=== PATIENT | female | born 2000 | race Hispanic/Latino ===

== ENCOUNTER 2020-04-16 14:40 | Inpatient (IN) | payer OTHER ==
--- OUTSIDE RECORDS SUMMARY | 2020-04-16 14:43 | XMS REPORT | Continuity of Care Document ---
:2000 Author Organization [facility] t Address [address] [place] [address] Care Team Providers Name Role Phone Janay Pascal Attending Clinician Ultrasound Attending Clinician Unavailable Problems This patient has no known problems. Allergies, Adverse Reactions, Alerts This patient has no known allergies or adverse reactions. Medications This patient has no known medications. Procedures This patient has no known procedures. Encounters Start End Encounter Admission Attending Care Care Encounter Source Date/Time Date/Time Type Type Clinicians Facility Department ID 2019-10-15 2019-10-15 Abstract ALONDRA Steven [id number] 00:00:00 00:00:00 Daniela Gustafson [facility] [id number] REGIONAL [id number] MATERNAL [id number] & CHILD [address] [facility] 2019-10-14 2019-10-14 [employer] Ultrasound, [facility] [id number] 14:09:34 14:39:34 Visit Cathy [facility] [id number] REGIONAL [id number] MATERNAL [id number] & CHILD [address] [facility] 2019-10-08 2019-10-08 Telemedici ALONDRA Steven [id number] 09:44:58 10:53:08 ne Visit Daniela R [employer] [employer] [id number] REGIONAL [id number] MATERNAL [id number] & CHILD 107 [facility] 2019-09-09 2019-09-09 Initial Maurizio [facility] [id number] 13:11:00 14:10:52 Daniela Gustafson [employer] [id number] Visit [facility] [id number] MATERNAL [phone] & CHILD [address] [place] [address] [facility] [place] Results This patient has no known results.
[2020-04-16] MEDS ORDERED: Ringers Lactate 1,000 ML IV PRN (15:45)
[2020-04-16] MEDS ORDERED: CARBOPROST TROME 250 MCG/ML IM PRN (15:45)
[2020-04-16] MEDS ORDERED: PROMETHAZINE INJ 25 MG/ML AMP IM PRN (15:45)
[2020-04-16] MEDS ORDERED: METHYLERGONOVINE 0.2MG/ML AMP IM PRN ×2 (15:45→20:28)
[2020-04-16] MEDS ORDERED: BUTORPHANOL 1 MG/ML INJ IV PRN (15:45)
[2020-04-16] MEDS ORDERED: OXYTOCIN/LR 20 UNIT/1,000 ML BAG IV SCH (16:00)
[2020-04-16] MEDS ORDERED: Ringers Lactate 1,000 ML IV SCH (16:00)
[2020-04-16 16:10] LABS: Urine Appearance CLEAR; Urine Bilirubin NEGATIVE (NEG); Urine Blood 1+ (NEG); Urine Color YELLOW; Urine Glucose NEGATIVE (NEG); Urine Protein NEGATIVE (NEG); Urine Urobilinogen 0.2 mg/dL (0.2-1.0)
[2020-04-16 16:13] LABS: Absolute Lymphocytes (CBC) 1.9 K/uL (0.7-4.9); Basophils % 0.4 % (0-1.3); Hematocrit 34.4 % (36.0-45.0); Lymphocytes % 18.5 % (15.3-44.8); RBC Red Blood Cell Count 3.97 M/uL (3.86-4.86)
[2020-04-16 16:16] LABS: Urine Microscopic Reflex ORDER UMIC
[2020-04-16 16:21] VITALS: BMI 27.8
[2020-04-16 16:24] LABS: Urine Bacteria <20 /HPF (<20); Urine Mucus MOD /HPF (NONE SEEN); Urine RBC <5 /HPF (NONE SEEN)
[2020-04-16] MEDS ORDERED: FENTANYL CITR 100 MCG/2 ML IV ONE (16:29)
[2020-04-16] MEDS ORDERED: FENTANYL/BUPIVACAINE/NS/PF 200 MCG/100 ML BAG EP PRN (16:29)
[2020-04-16] MEDS ORDERED: BUPIVACAINE 0.25% PF 10 ML VIAL IV PRN (16:30)
[2020-04-16] MEDS ORDERED: BUPIVACAINE 0.25% PF 10 ML VIAL IJ PRN (17:00)
[2020-04-16] MEDS ORDERED: LIDOCAINE 1% MPF 30 ML VIAL ONE (18:03)
--- NOTE | 2020-04-16 20:13 | HP ---
Date of Admission: 04/16/2020 Chief Complaint: Increasing frequency of contractions q.5 minutes. History Of Present Illness: This is a 20-year-old 2, para 1 female, last menstrual period on 07/22/2019, EDC is 04/24/2020, who is now 38 weeks 6 days, who presents complaining of increasing frequency of contractions less than 5 minutes apart beginning earlier today. She reports good movement. She denies any rupture of membranes, fever, or cough. Course: The patient has been receiving care by Dr. Chawla, who has had multiple visits and no complications during her . She has had no evidence of hypertensive disease or gestational diabetes. The patient was scheduled for an induction of labor in [address] Chawla, but had the onset of contractions prior to that time. Past Medical History: Obstetrical History: 2017, spontaneous vaginal delivery of a male weighing 7 pounds 7 ounces, which was uncomplicated. Surgical History: Negative. Illnesses: None. Medications: vitamins. Allergies: NONE. Social History: Denies any smoking, ethanol, or drug use. Review of Systems: No other current symptoms. Family History: Unremarkable. Physical Examination: General: This is a gravid female, in mild distress from repetitive contractions. Vital Signs: Blood pressure was 127/66, temp 97.9, pulse 97 and regular, respiratory rate 16. Height 5 feet 2 inches, 155 pounds. Neck: Supple without adenopathy or thyromegaly. Chest: Clear to ausculation. Heart: Regular rate without murmur. Abdomen: Fundal height appropriate for 39 weeks , vertex presentation. Pelvic: Cervix 4 to 5, 80%, -1 station, vertex presentation, intact membranes. Extremities: Minimal edema. Normal reflexes. Laboratory Data: Admission lab is pending. Previous documented laboratory reveals rubella immune, HIV negative, hepatitis B surface antigen negative, GBS negative on 03/30, negative chlamydia and gonorrhea during her . Impression: A 38 weeks 6 days 2, para 1, intrauterine in active labor, intact membranes and negative group B streptococcus culture, unknown COVID status. Plan: The patient is admitted for latent labor, the lab work, COVID testing. The patient desires epidural and after she receives this, we will perform amniotomy, expect spontaneous vaginal delivery. PAULINE/MINERVA Voice ID: [id number] MTDD
[2020-04-16] MEDS ORDERED: ACETAMINOPHEN 500 MG TAB PO PRN (20:28)
[2020-04-16] MEDS ORDERED: ONDANSETRON 4 MG (ODT) TAB PO PRN (20:28)
[2020-04-16] MEDS ORDERED: ZOLPIDEM TARTRATE 5 MG TABLET PO PRN (20:28)
[2020-04-16] MEDS ORDERED: Oxycodone HCl/Acetaminophen 1 TAB TAB PO PRN (20:28)
--- NOTE | 2020-04-16 21:13 | DN ---
Date of Procedure: 04/16/2020 Surgeon: LA DELGADO This 20-year-old 2, para 1, 38 weeks 6 days, presented to the hospital in early labor. She had an epidural placed and then underwent artificial rupture of membranes at 1935 hours, with clear fluid. The patient had approximately 3 to 4 pushes in second stage, delivered spontaneously at 1956hrs a viable male, Apgars 9/10, weight :7 pounds 10 ounces, 3467 g, 20 inches in length. There was a 1-minute delay in cutting the umbilical cord for autotransfusion. There was no episiotomy or lacerations. The estimated blood loss was less than 100 cc. Placenta delivered spontaneously at 1958 hours, 2 minutes after delivery. Placenta was intact, three vessel cord, and no anomalies noted. There was a vigorous cry from the baby and both mother and baby did well in room with no complications. PAULINE/MINERVA Voice ID: [id number] Report ID: [id number] ANNETTE
[2020-04-16] MEDS: IBUPROFEN 200 MG TAB PO PRN (23:30)
[2020-04-17 06:42] LABS: Absolute Lymphocytes (CBC) 2.6 K/uL (0.7-4.9); Basophils % 0.5 % (0-1.3); Hematocrit 30.4 % (36.0-45.0); Lymphocytes % 19.2 % (15.3-44.8); MPV 10.7 fL (7.6-11.3); RBC Red Blood Cell Count 3.49 M/uL (3.86-4.86)
[2020-04-17] MEDS: IBUPROFEN 200 MG TAB PO PRN ×2 (08:45→20:00)
--- NOTE | 2020-04-17 14:57 | PN ---
Date of Progress Note: 04/17/2020 Subjective: This 20-year-old 2, now para 2, white female status post spontaneous vaginal del gila yesterday evening at 1956 hours, who is now . The patient had an uneventful labor an d delivery with epidural. She had a very short second stage of labor and no bleeding complications. She remained normotensive throughout her hospital stay. Today, the patient reports just mild crampi ng which is relieved by ibuprofen. She is . The patient desires to have the Tdap vacci ne and influenza vaccine. She was rubella immune, so does not need MMR. Objective: Current Vital Signs: Blood pressure 120/70, pulse 80 and regular, respiratory rate 16. Genitalia: Her uterus is firm and lochia is minimal. Impression: Normal exam of a term intrauterine . Her hematocrit is 3 0.4 and she is Rh positive. Plan: The patient is scheduled for discharge in 24 hours this evening. Recommendations i nclude pelvic rest for 6 weeks, no tampons or intercourse. Continue vitamins with some iron supplementation. Followup with Dr. Chawla in 6 weeks and she desires Nexplanon for control at that time. PAULINE/MINERVA Voice ID: [id number] Report ID: [id number]
[2020-04-17] MEDS ORDERED: Tdap (Diph,Pertuss(Acell),Tet Vac) 0.5 ML SYR IMVAC ONE (17:52)
[2020-04-17] MEDS ORDERED: INFLUENZA VACCINE (for 3y+) 0.5 ML DOSE IMVAC ONE (17:52)
[2020-04-17 22:01] VITALS: BP 116/73; TEMP 98
[2020-04-18 01:02] LABS: RPR (Rapid Plasma Reagin) NON-REACT (NON-REACT)
[2020-04-20 04:17] LABS: HBsAG Nonreactive (Nonreactive)
== END 2020-04-17 22:22 | disposition home or self-care (01) | DRG 807 ==
LOC: L&D 14:40 → 2ND-WC 15:33
PROVIDERS: ADMIT Specialist; ATTEND Specialist
PROC: 10E0XZZ Delivery of Products of Conception, External Approach (ICD-10-PCS; principal; 2020-04-16)
PROC: 10907ZC Drainage of Amniotic Fluid, Therapeutic from Products of Conception, Via Natural or Artificial Opening (ICD-10-PCS; 2020-04-16)
DX: O80 Encounter for full-term uncomplicated delivery (principal); Z37.0 Single live birth; Z3A.38 38 weeks gestation of pregnancy; Z20.828 Contact with and (suspected) exposure to other viral communicable diseases; Z23 Encounter for immunization
CPT/HCPCS: 36415; 81003; 81015; 85025; 86592; 86901; 87340; 90471; 90715; J2210; J2590; J3010; J7120; Q2035; U0003

== ENCOUNTER 2022-10-02 09:28 | Emergency (ER) | payer OTHER ==
--- OUTSIDE RECORDS SUMMARY | 2022-10-02 09:36 | XMS REPORT | Continuity of Care Document ---
:2000 Author Organization [facility] t Address [address] [facility] [place] [address] Care Team Providers Name Role Phone Mya Dimas Primary Care Physician KARAN MARQUEZ Attending Clinician Unavailable Karan Marquez MD Attending Clinician Doctor Unassigned, [place] Attending Clinician Unavailable Jd Dodd CRNA Attending Clinician All Burr MD Attending Clinician Only, Adc Test Attending Clinician Unavailable Lab, Ang - Db Attending Clinician Unavailable Ultrasound, Adc Mfm Attending Clinician Unavailable Tami Nichols MD Attending Clinician Pob, Adc Lab Main Attending Clinician Unavailable DANIELA RAYO Attending Clinician Unavailable Daniela Pascal Attending Clinician Ultrasound, Ang-Mfm Attending Clinician Unavailable Colton Roberts MD Attending Clinician KARAN MARQUEZ Admitting Clinician Unavailable Karan Marquez MD Admitting Clinician Payers Payer Name Policy Type Policy Number Effective Date Expiration Date [facility] [id number] 2019 [facility] MEDICAID 00:00:00 [facility] [id number] 2019 MEDICAID 00:00:00 MEDICAID OF [place] [id number] 2019 00:00:00 Problems Condition Condition Condition Status Onset Resolution Last Treating Co mments Source Name Details Category Date Date Treatment Clinician Date Encounter Encounter Disease Active 2020-05 Uni vers for for 1-24 ity of elective elective 00:00: [place] induction induction [facility] of labor of labor [place] Liveborn Liveborn Disease Active 2020-05 Unive rs infant, of infant, of 1-24 it y [facility] by vaginal by vaginal delivery delivery Missed Missed Disease Active Univers menses menses 4-13 ity of 00:00: [place] 00 [facility] Disease Active Uni vers examinatio examinatio 4-13 it y of n or test, [place] test, [place] positive positive 00 Medica l result result [place] Supervisio Supervisio Disease Active U nivers n of other n of other 4-13 it y of normal normal 00:00: [place] 00 [facility] Supervisio Supervisio Disease Active 2019- U nivers n of high n of high 5-21 ity of risk risk 00:00: [place] , , 00 Me dical antepartum antepartum Br anch Short Short Disease Active 2020-0 Univers interval interval 5-21 ity of between between 00:00: [place] pregnancie pregnancie 00 Me dical s s Branch affecting affecting , , antepartum antepartum Multiparit Multiparit Disease Active 2020-0 U nivers y y 5-21 ity of 00:00: [address] Nausea Nausea Disease Active 2020-0 Univers 5-21 ity of 00:00: [address] Branch Susceptibl Susceptibl Disease Active 2020-0 Overview : Univers e to e to 09-09 Formattin ity of varicella varicella 00:00: g of this [place] (non-immun (non-immun 00 note Me dical e), e), might be Branch currently currently different from the original. Address in Postpartu m No known No known Disease Unive rs active active ity of problems problems [facility] Allergies, Adverse Reactions, Alerts Allergy Allergy Status Severity Reaction(s) Onset Inactive Treating Comm ents Source Name Type Date Date Clinician NO KNOWN Drug Active Univers ALLERGIE Class ity of S [facility] Social History Social Habit Start Date Stop Date Quantity Comments Source ASSERTION 2020-07-27 [facility] 00:00:00 [facility] Exposure to Not sure University SARS-CoV-2 [facility] (event) [place] Alcohol intake 2021-03-23 2021-03-23 Ex-drinker [facility] 00:00:00 00:00:00 (finding) [facility] Tobacco use and 2019-09-09 2019-09-09 Never used Universit y of exposure 00:00:00 00:00:00 [facility] Sex Assigned At 2000 2000 Universit y of 00:00:00 00:00:00 [facility] Smoking Status Start Date Stop Date Source Unknown if ever smoked [facility] Medications Ordered Filled Start Stop Current Ordering Indication Dosage Frequency Signature Comments Components Source Medication Medication Date Date Medication? Clinician (SIG) Name Name etonogestre 2020-05- No [id number] 68mg Univers L 2-16 12-16 ity of (NEXPLANON) 18:45: 23:56 [place] implant 68 00 :00 Medical [facility] etonogestre 2020-05- No [id number] 68mg 68 mg, Univers L 2-16 12-16 Subdermal, ity of (NEXPLANON) 18:45: 23:56 [place]CE, 1 [place] implant 68 00 :00 dose, On Medic al mg Deb [place] 05/04/21 at 1245, Routine
Use approved by: [employer] varicella 2020-05 Yes .5mL 0.5 mL, Unive rs virus - Subcutaneo ity of vaccine 02:09: us, [place] live 30 ONCE-PRIOR Medical (VARIVAX TO [place] (PF)) DISCHARGE, injection 1 dose, 0.5 mL Starting on Sat04/12/21 at 2008, Until Discontinu ed, Routine, Give vaccine prior to discharge rho(D) 2020-05 Yes 300ug 300 mcg, Univer s immune 1-24 Intramuscu ity of globulin 16:05: lar, ONCE, [place] as (RHOGAM) 32 For 1 Medical syringe 300 dose, Branch mcg Conditiona l, Routine HYDROcodone 2020-05 Yes 1{tbl} 1 tablet, Univers -acetaminop 1-24 Oral, ity of hen (NORCO 16:04: Q6HPRN, [place] 5) 5-325 mg 00 Starting Medi mukesh tablet 1 on Sat Branch tablet 04/12/21 at 1004, Until Discontinu ed, Routine, Pain (scale 7-10) ibuprofen 2020-05 Yes 600mg 600 mg, Univ ers (IBU) 1-24 Oral, ity of tablet 600 16:04: Q6HPRN, [place] mg 00 Starting Medical on Sat Branch 04/12/21 at 1004, Until Discontinu ed, Routine, Pain (scale 4-6) acetaminoph 2020-05 Yes 650mg 650 mg, Un rashel en 24 Oral, ity of (TYLENOL) 16:04: Q6HPRN, [place] tablet 650 00 Starting Medic al mg on Sat Branch 04/12/21 at 1004, Until Discontinu ed, Routine, Pain (scale 1-3) diphenhydrA 2020-05 Yes 25mg 25 mg, Univ ers MINE 24 Oral, ity of (BENADRYL) 16:04: Q6HPRN, [place] tablet 25 00 Starting Medica l mg on Sat Branch 04/12/21 at 1004, Until Discontinu ed, Routine, Sleep, Itching ondansetron 2020-05 Yes 4mg 4 mg, Slow Univers (ZOFRAN 24 IV Push, ity of (PF)) 16:04: Q8HPRN, [place] injection 4 00 Starting Medi mukesh mg on Sat Branch 04/12/21 at 1004, Until Discontinu ed, Routine, Nausea and Vomiting (N/V) simethicone 2020-05 Yes 160mg 160 mg, Un rashel (GAS RELIEF 24 Oral, ity of (SIMETHICON 16:04: PC+HSPRN, [place] E)) 00 Starting Medical chewable on Sat Branch tablet 160 04/12/21 mg at 1004, Until Discontinu ed, Routine, Gas docusate 2020-05 Yes 240mg 240 mg, Unive rs calcium -24 Oral, ity of (SURFAK) 16:04: QDAILYPRN, [place] capsule 240 00 Starting Medi mukesh mg on Sat Branch 04/12/21 at 1004, Until Discontinu ed, Routine, Constipati on magnesium 2020-05 Yes 30mL 30 mL, Univer s hydroxide 06-12 Oral, ity of (MILK OF 16:04: QDAILYPRN, [place] MAGNESIA) 00 Starting Medica l 400 mg/5 mL on Sat Branch suspension 04/12/21 30 mL at 1004, Until Discontinu ed, Routine, Constipati on benzocaine- 2020-05 Yes Topical, Un rashel menthol - PRN, ity of (DERMOPLAST 16:03: [place] ) 20-0.5 % 59 on Sat Medical topical 04/12/21 Branch spray at 1003, Until Discontinu ed, Routine, Perineum discomfort FENTanyl 2 2020-05- No Intra-op Un rashel mcg/mL + 06-12 ity of bupivacaine 14:11: 17:13 [place] 0.125% in 00 :50 Medical NS 250 mL Branch epidural bag lidocaine-e 2020-05- No Epidural, Univers pinephrine 06-12 ONCE INTRA it y of (XYLOCAINE 14:10: 17:13 PROCEDURE, [place] W/EPINEPHRI 00 :50 Starting Medi mukesh NE) 1.5 on Sat Branch %-1:200,000 04/12/21 injection at 0810, Until Sat04/12/21 at 1113, Routine, Intra-op lidocaine 2020-05- No Infiltrati U nivers 1% 06-12 on, ONCE ity of (XYLOCAINE) 14:04: 17:13 INTRA [place] 100 mg/10 00 :50 PROCEDURE, Medi mukesh mL (1 %) Starting Branch injection on Sat04/12/21 at 0804, Until Sat04/12/21 at 1113, Routine, Intra-op D5W-LR IV 2020-05- No 1000mL at 125 Uni vers infusion 06-12 11-24 mL/hr, IV ity o f 1,000 mL 11:00: 16:05 Infusion, [place] as 00 :33 CONTINUOUS Medical , Starting Branch on Sat04/12/21 at 0500, Until Sat04/12/21 at 1005, Routine LR 1000 mL 2020-05- No 2mU/min at 6-120 Univers + oxytocin 24 11-24 mL/hr, IV ity of 20 units IV 10:48: 16:05 Infusion, [place] Solution 08 :33 TITRATE, Medical Starting Branch on Sat04/12/21 at 0448, Until Sat04/12/21 at 1005, CAROL ondansetron 2020-05- No 4mg 4 mg, Slow Univers (ZOFRAN -24 -24 IV Push, ity of (PF)) 10:48: 16:05 Q6HPRN, [place] injection 4 08 :33 Starting Medi mukesh mg on Sat Branch 04/12/21 at 0448, Until Sat04/12/21 at 1005, Routine, Nausea and Vomiting (N/V) 2020-05 Yes [id number] 1{tbl} Take 1 U nivers vit w/iron 1-24 tablet by ity of fumarate 00:00: mouth [place] and FA 00 daily. Medical ( Branch VITAMIN WITH MINERALS) tablet docusate 2020-05 Yes [id number] 240mg Take 1 Univers calcium 240 1-24 102 capsule by it y of mg capsule 00:00: mouth once [place] 00 daily as Medical needed for Branch Constipati on. ibuprofen 2020-05 Yes [id number] 600mg Take 1 Univers 600 mg 1-24 102 tablet by ity of tablet 00:00: mouth [place] 00 every 6 Medical (six) Branch hours as needed (Pain). Take with food or milk. 2020-05 Yes [id number] 1{tbl} Take 1 U nivers vit w/iron 1-24 tablet by ity of fumarate 00:00: mouth [place] and FA 00 daily. Medical ( Branch VITAMIN WITH MINERALS) tablet docusate 2020-05 Yes [id number] 240mg Take 1 Univers calcium 240 1-24 102 capsule by it y of mg capsule 00:00: mouth [place] 00 daily as Medical needed for Branch Constipati on. ibuprofen 2020-05 Yes [id number] 600mg Take 1 Univers 600 mg 1-24 102 tablet by ity of tablet 00:00: mouth [place] 00 every 6 Medical (six) Branch hours as needed (Pain). Take with food or milk. 2020-05 Yes [id number] 1{tbl} Take 1 U nivers vit w/iron 1-24 tablet by ity of fumarate 00:00: mouth [place] and [place] 00 daily. Medical ( Branch VITAMIN WITH MINERALS) tablet 2020-05 Yes [id number] 1{tbl} Take 1 U nivers vit w/iron -24 tablet by ity of fumarate 00:00: mouth [place] and [place] 00 daily. Medical ( Branch VITAMIN WITH MINERALS) tablet docusate 2020-05- No [id number] 240mg Take 1 Univers calcium 240 06-12 102 capsule by i ty of mg capsule 00:00: 00:00 mouth once [place] 00 :00 daily as Medical needed for Branch Constipati on. ibuprofen 2020-05- No [id number] 600mg Take 1 Univers 600 mg 06-1216 102 tablet by ity of tablet 00:00: 00:00 mouth [place] 00 :00 every 6 Medical (six) Branch hours as needed (Pain). Take with food or milk. ferrous 2020-05 Yes [id number] 325mg Take 1 Un rashel sulfate 1-05 tablet by ity of (IRON, 00:00: mouth [place] FERROUS 00 every Medical SULFATE,) other day. Bran ch 325 mg (65 mg iron) tablet ascorbic 2020-05 Yes [id number] 500mg Take 1 U nivers acid, 1-05 tablet by ity of vitamin C, 00:00: mouth [place] 500 mg 00 every Medical tablet other day. Branch ferrous 2020-05 Yes [id number] 325mg Take 1 Un rashel sulfate 1-05 tablet by ity of (IRON, 00:00: mouth [place] FERROUS 00 every Medical SULFATE,) other day. Bran ch 325 mg (65 mg iron) tablet ascorbic 2020-05 Yes [id number] 500mg Take 1 U nivers acid, 1-05 tablet by ity of vitamin C, 00:00: mouth [place] 500 mg 00 every Medical tablet other day. Branch ferrous 2020-05 Yes [id number] 325mg Take 1 Un rashel sulfate 1-05 tablet by ity of (IRON, 00:00: mouth [place] FERROUS 00 every Medical SULFATE,) other day. Bran ch 325 mg (65 mg iron) tablet ascorbic 2020-05 Yes [id number] 500mg Take 1 U nivers acid, 1-05 tablet by ity of vitamin C, 00:00: mouth [place] 500 mg 00 every Medical tablet other day. Branch ferrous 2020-05 Yes [id number] 325mg Take 1 Un rashel sulfate 1-05 tablet by ity of (IRON, 00:00: mouth [place] FERROUS 00 every Medical SULFATE,) other day. Bran ch 325 mg (65 mg iron) tablet ascorbic 2020-05 Yes [id number] 500mg Take 1 U nivers acid, 1-05 tablet by ity of vitamin C, 00:00: mouth [place] 500 mg 00 every Medical tablet other day. Branch ferrous 2020-05 Yes [id number] 325mg Take 1 Un rashel sulfate 1-05 tablet by ity of (IRON, 00:00: mouth [place] FERROUS 00 every Medical SULFATE,) other day. Bran ch 325 mg (65 mg iron) tablet ascorbic 2020-05 Yes [id number] 500mg Take 1 U nivers acid, 1-05 tablet by ity of vitamin C, 00:00: mouth [place] 500 mg 00 every Medical tablet other day. Branch ferrous 2020-05 Yes [id number] 325mg Take 1 Un rashel sulfate 1-05 tablet by ity of (IRON, 00:00: mouth [place] FERROUS 00 every Medical SULFATE,) other day. Bran ch 325 mg (65 mg iron) tablet ascorbic 2020-05 Yes [id number] 500mg Take 1 U nivers acid, 1-05 tablet by ity of vitamin C, 00:00: mouth [place] 500 mg 00 every Medical tablet other day. Branch ferrous 2020-05 Yes [id number] 325mg Take 1 Un rashel sulfate 1-05 tablet by ity of (IRON, 00:00: mouth [place] FERROUS 00 every Medical SULFATE,) other day. Bran ch 325 mg (65 mg iron) tablet ascorbic 2020-05 Yes [id number] 500mg Take 1 U nivers acid, 1-05 tablet by ity of vitamin C, 00:00: mouth [place] 500 mg 00 every Medical tablet other day. Branch ferrous 2020-05- No [id number] 325mg Take 1 U nivers sulfate 1-05 12-16 tablet by ity of (IRON, 00:00: 00:00 mouth [place] FERROUS 00 :00 every Medical SULFATE,) other day. Bran ch 325 mg (65 mg iron) tablet ascorbic 2020-05 No [id number] 500mg Take 1 Univers acid, 1-05 12-16 tablet by ity of vitamin C, 00:00: 00:00 mouth [place] 500 mg 00 :00 every Medical tablet other day. Branch ferrous 2020-05- No [id number] 325mg Take 1 U nivers sulfate 05-2416 tablet by ity of (IRON, 00:00: 00:00 mouth [place] FERROUS 00 :00 every Medical SULFATE,) other day. Bran ch 325 mg (65 mg iron) tablet ascorbic 2020-05- No [id number] 500mg Take 1 Univers acid, 05-2416 tablet by ity of vitamin C, 00:00: 00:00 mouth [place] 500 mg 00 :00 every Medical tablet other day. Branch cephALEXin 2020-05- No [id number] 500mg Take 1 Univers 500 mg 05-22 capsule by ity of capsule 00:00: 05:59 mouth [place] 00 :00 every 6 Medical (six) Branch hours for 7 days. cephALEXin 2020-05- No [id number] 500mg Take 1 Univers 500 mg 05-22 capsule by ity of capsule 00:00: 05:59 mouth [place] 00 :00 every 6 Medical (six) Branch hours for 7 days. cephALEXin 2020-05- No [id number] 500mg Take 1 Univers 500 mg 05-22 capsule by ity of capsule 00:00: 05:59 mouth [place] 00 :00 every 6 Medical (six) Branch hours for 7 days. cephALEXin 2020-05- No [id number] 500mg Take 1 Univers 500 mg 05-22 capsule by ity of capsule 00:00: 05:59 mouth [place] 00 :00 every 6 Medical (six) Branch hours for 7 days. cephALEXin 2020-05- No [id number] 500mg Take 1 Univers 500 mg 05-2211 capsule by ity of capsule 00:00: 05:59 mouth [place] 00 :00 every 6 Medical (six) Branch hours for 7 days. Yes [id number] 1{tbl} Take 1 U nivers vit w/iron 6-08 tablet by ity of fumarate 00:00: mouth [place] and FA 00 daily. Medical ( Branch VITAMIN WITH MINERALS) tablet Yes [id number] 1{tbl} Take 1 U nivers vit w/iron 6-08 tablet by ity of fumarate 00:00: mouth [place] and [place] 00 daily. Medical ( Branch VITAMIN WITH MINERALS) tablet Yes [id number] 1{tbl} Take 1 U nivers vit w/iron 6-08 tablet by ity of fumarate 00:00: mouth [place] and FA 00 daily. Medical ( Branch VITAMIN WITH MINERALS) tablet Yes [id number] 1{tbl} Take 1 U nivers vit w/iron 6-08 tablet by ity of fumarate 00:00: mouth [place] and FA 00 daily. Medical ( Branch VITAMIN WITH MINERALS) tablet Yes [id number] 1{tbl} Take 1 U nivers vit w/iron 6-08 tablet by ity of fumarate 00:00: mouth [place] and FA 00 daily. Medical ( Branch VITAMIN WITH MINERALS) tablet Yes [id number] 1{tbl} Take 1 U nivers vit w/iron 6-08 tablet by ity of fumarate 00:00: mouth [place] and FA 00 daily. Medical ( Branch VITAMIN WITH MINERALS) tablet Yes [id number] 1{tbl} Take 1 U nivers vit w/iron 6-08 tablet by ity of fumarate 00:00: mouth [place] and FA 00 daily. Medical ( Branch VITAMIN WITH MINERALS) tablet Yes [id number] 1{tbl} Take 1 U nivers vit w/iron 6-08 tablet by ity of fumarate 00:00: mouth [place] and FA 00 daily. Medical ( Branch VITAMIN WITH MINERALS) tablet Yes [id number] 1{tbl} Take 1 U nivers vit w/iron 6-08 tablet by ity of fumarate 00:00: mouth [place] and FA 00 daily. Medical ( Branch VITAMIN WITH MINERALS) tablet Yes [id number] 1{tbl} Take 1 U nivers vit w/iron 6-08 tablet by ity of fumarate 00:00: mouth [place] and FA 00 daily. Medical ( Branch VITAMIN WITH MINERALS) tablet Yes [id number] 1{tbl} Take 1 U nivers vit w/iron 6-08 tablet by ity of fumarate 00:00: mouth [place] and FA 00 daily. Medical ( Branch VITAMIN WITH MINERALS) tablet Yes [id number] 1{tbl} Take 1 U nivers vit w/iron 6-08 tablet by ity of fumarate 00:00: mouth [place] and FA 00 daily. Medical ( Branch VITAMIN WITH MINERALS) tablet Yes [id number] 1{tbl} Take 1 U nivers vit w/iron 6-08 tablet by ity of fumarate 00:00: mouth [place] and FA 00 daily. Medical ( Branch VITAMIN WITH MINERALS) tablet Yes [id number] 1{tbl} Take 1 U nivers vit w/iron 6-08 tablet by ity of fumarate 00:00: mouth [place] and FA 00 daily. Medical ( Branch VITAMIN WITH MINERALS) tablet Yes [id number] 1{tbl} Take 1 U nivers vit w/iron 6-08 tablet by ity of fumarate 00:00: mouth [place] and FA 00 daily. Medical ( Branch VITAMIN WITH MINERALS) tablet Yes [id number] 1{tbl} Take 1 U nivers vit w/iron 6-08 tablet by ity of fumarate 00:00: mouth [place] and FA 00 daily. Medical ( Branch VITAMIN WITH MINERALS) tablet 2020- No [id number] 1{tbl} Take 1 Univers vit w/iron 6-08 11-24 tablet by ity of fumarate 00:00: 00:00 mouth [place] and FA 00 :00 daily. Medical ( Branch VITAMIN WITH MINERALS) tablet 2020- No [id number] 1{tbl} Take 1 Univers vit w/iron 6-08 11-24 tablet by ity of fumarate 00:00: 00:00 mouth [place] and FA 00 :00 daily. Medical ( Branch VITAMIN WITH MINERALS) tablet 2020- No [id number] 1{tbl} Take 1 Univers vit w/iron 6-08 11-24 tablet by ity of fumarate 00:00: 00:00 mouth [place] and FA 00 :00 daily. Medical ( Branch VITAMIN WITH MINERALS) tablet Yes [id number] 1{packe Take 1 Univers vit 4-22 t} Packet by ity of 33-iron-fol 00:00: mouth [place] ic-dha 00 daily. Medical (SELECT-OB Branch + DHA) 29 mg iron-1 mg -250 mg combo pack proMETHazin Yes [id number] 25mg Take 1 Univers e 25 mg 4-22 tablet by ity of tablet 00:00: mouth [place] 00 every 4 Medical (four) Branch hours as needed for Nausea and Vomiting (N/V). 2019-0 Yes [id number] 1{packe Take 1 Univers vit 4-22 t} Packet by ity of 33-iron-fol 00:00: mouth [place] ic-dha 00 daily. Medical (SELECT-OB Branch + DHA) 29 mg iron-1 mg -250 mg combo pack proMETHazin 2020-0 Yes [id number] 25mg Take 1 Univers e 25 mg 4-22 tablet by ity of tablet 00:00: mouth [place] 00 every 4 Medical (four) Branch hours as needed for Nausea and Vomiting (N/V). 2019-0 Yes [id number] 1{packe Take 1 Univers vit 4-22 t} Packet by ity of 33-iron-fol 00:00: mouth [place] ic-dha 00 daily. Medical (SELECT-OB Branch + DHA) 29 mg iron-1 mg -250 mg combo pack proMETHazin 2020-0 Yes [id number] 25mg Take 1 Univers e 25 mg 4-22 tablet by ity of tablet 00:00: mouth [place] 00 every 4 Medical (four) Branch hours as needed for Nausea and Vomiting (N/V). 2019-0 Yes [id number] 1{packe Take 1 Univers vit 4-22 t} Packet by ity of 33-iron-fol 00:00: mouth [place] ic-dha 00 daily. Medical (SELECT-OB Branch + DHA) 29 mg iron-1 mg -250 mg combo pack proMETHazin 2020-0 Yes [id number] 25mg Take 1 Univers e 25 mg 4-22 tablet by ity of tablet 00:00: mouth [place] 00 every 4 Medical (four) Branch hours as needed for Nausea and Vomiting (N/V). 2019-0 Yes [id number] 1{packe Take 1 Univers vit 4-22 t} Packet by ity of 33-iron-fol 00:00: mouth [place] ic-dha 00 daily. Medical (SELECT-OB Branch + DHA) 29 mg iron-1 mg -250 mg combo pack proMETHazin 2020-0 Yes [id number] 25mg Take 1 Univers e 25 mg 4-22 tablet by ity of tablet 00:00: mouth [place] 00 every 4 Medical (four) Branch hours as needed for Nausea and Vomiting (N/V). 2020-0 Yes [id number] 1{packe Take 1 Univers vit 4-22 t} Packet by ity of 33-iron-fol 00:00: mouth [place] ic-dha 00 daily. Medical (SELECT-OB Branch + DHA) 29 mg iron-1 mg -250 mg combo pack proMETHazin 0 Yes [id number] 25mg Take 1 Univers e 25 mg 4-22 tablet by ity of tablet 00:00: mouth [place] 00 every 4 Medical (four) Branch hours as needed for Nausea and Vomiting (N/V). 2020-0 Yes [id number] 1{packe Take 1 Univers vit 4-22 t} Packet by ity of 33-iron-fol 00:00: mouth [place] ic-dha 00 daily. Medical (SELECT-OB Branch + DHA) 29 mg iron-1 mg -250 mg combo pack proMETHazin 0 Yes [id number] 25mg Take 1 Univers e 25 mg 4-22 tablet by ity of tablet 00:00: mouth [place] 00 every 4 Medical (four) Branch hours as needed for Nausea and Vomiting (N/V). amoxicillin 2017-05 Yes 500mg Take 1 Uni vers 500 mg 2-06 capsule by ity of capsule 00:00: mouth 3 [place] 00 (three) Medical times Branch daily. ibuprofen 2017-05 Yes 800mg Take 1 Unive rs 800 mg 2-06 tablet by ity of tablet 00:00: mouth [place] 00 every 8 Medical (eight) Branch hours. amoxicillin 2017- Yes 500mg Take 1 Uni vers 500 mg 2-06 capsule by ity of capsule 00:00: mouth 3 [place] 00 (three) Medical times Branch daily. ibuprofen 2017- Yes 800mg Take 1 Unive rs 800 mg 2-06 tablet by ity of tablet 00:00: mouth [place] 00 every 8 Medical (eight) Branch hours. amoxicillin 2018- Yes 500mg Take 1 Uni vers 500 mg 2-06 capsule by ity of capsule 00:00: mouth 3 [place] 00 (three) Medical times Branch daily. ibuprofen 2017- Yes 800mg Take 1 Unive rs 800 mg 2-06 tablet by ity of tablet 00:00: mouth [place] 00 every 8 Medical (eight) Branch hours. amoxicillin 2017-05 2020- No 500mg Take 1 Un rashel 500 mg 2-22 capsule by ity of capsule 00:00: 00:00 mouth 3 [place] 00 :00 (three) Medical times Branch daily. ibuprofen 2017- 2020- No 800mg Take 1 Univ ers 800 mg 2-10 21-22 tablet by ity of tablet 00:00: 00:00 mouth [place] 00 :00 every 8 Medical (eight) Branch hours. amoxicillin 2017- 2020- No 500mg Take 1 Un rashel 500 mg 2-10 21-22 capsule by ity of capsule 00:00: 00:00 mouth 3 [place] 00 :00 (three) Medical times Branch daily. ibuprofen 2017- 2020- No 800mg Take 1 Univ ers 800 mg 2-10 21-22 tablet by ity of tablet 00:00: 00:00 mouth [place] 00 :00 every 8 Medical (eight) Branch hours. amoxicillin 2017- 2020- No 500mg Take 1 Un rashel 500 mg 2-10 21-22 capsule by ity of capsule 00:00: 00:00 mouth 3 [place] 00 :00 (three) Medical times Branch daily. ibuprofen 2017-05 2020- No 800mg Take 1 Univ ers 800 mg 2-10 21-22 tablet by ity of tablet 00:00: 00:00 mouth [place] 00 :00 every 8 Medical (eight) Branch hours. amoxicillin 2017-05- No 500mg Take 1 Un rashel 500 mg 2-22 capsule by ity of capsule 00:00: 00:00 mouth 3 [place] 00 :00 (three) Medical times Branch daily. ibuprofen 2017-05- No 800mg Take 1 Univ ers 800 mg 2-22 tablet by ity of tablet 00:00: 00:00 mouth [place] 00 :00 every 8 Medical (eight) Branch hours. mupirocin 2017-0 Yes Apply to [facility] ers (BACTROBAN) 12-18 affected ity of 2 % cream 00:00: area(s) 3 [place] 00 (three) Medical times Branch daily. clindamycin 2017-0 Yes 300mg Take 1 Uni vers 300 mg 12-18 capsule by ity of capsule 00:00: mouth 4 [place] 00 (four) Medical times Branch daily. mupirocin 2017-0 Yes Apply to [facility] ers (BACTROBAN) 12-18 affected ity of 2 % cream 00:00: area(s) 3 [place] 00 (three) Medical times Branch daily. clindamycin 2017-0 Yes 300mg Take 1 Uni vers 300 mg - capsule by ity of capsule 00:00: mouth 4 [place] 00 (four) Medical times Branch daily. mupirocin 2017-0 Yes Apply to Univ ers (BACTROBAN) 12-18 affected ity of 2 % cream 00:00: area(s) 3 [place] 00 (three) Medical times Branch daily. clindamycin 2017-0 Yes 300mg Take 1 Uni vers 300 mg 8 capsule by ity of capsule 00:00: mouth 4 [place] 00 (four) Medical times Branch daily. mupirocin 2017-0 2020- No Apply to Uni vers (BACTROBAN) 12-18 affected ity of 2 % cream 00:00: 00:00 area(s) 3 [place] :00 (three) Medical times Branch daily. clindamycin 2017-0 2020- No 300mg Take 1 Un rashel 300 mg 12-18 capsule by ity of capsule 00:00: 00:00 mouth 4 [place] 00 :00 (four) Medical times Branch daily. mupirocin 2017-0 2020- No Apply to Uni vers (BACTROBAN) 12-18 affected ity of 2 % cream 00:00: 00:00 area(s) 3 [place] 00 :00 (three) Medical times Branch daily. clindamycin 2017-0 2020- No 300mg Take 1 Un rashel 300 mg 12-18 capsule by ity of capsule 00:00: 00:00 mouth 4 [place] 00 :00 (four) Medical times Branch daily. mupirocin 2017-0 2020- No Apply to Uni vers (BACTROBAN) 12-18 affected ity of 2 % cream 00:00: 00:00 [place]three[place] Medical times Branch daily. clindamycin 2017-0 2020- No 300mg Take 1 Un rashel 300 mg 12-18 capsule by ity of capsule 00:00: 00:00 mouth 4 [place] 00 :00 (four) Medical times Branch daily. mupirocin 2017-0 2020- No Apply to Uni vers (BACTROBAN) 12-18 affected ity of 2 % cream 00:00: 00:00 [place] (three[place] Medical times Branch daily. clindamycin 2020- No 300mg Take 1 Un rashel 300 mg 12-18 capsule by ity of capsule 00:00: 00:00 mouth 4 [place] 00 :00 (four) Medical times [place] daily. No known No Univers medications ity of [facility] Immunizations Ordered Filled Immunization Date Status Comments [facility] e Immunization Name Name HPV9 2021-05-04 Completed University of 00:00:00 [facility] HPV9 2021-05-04 Completed University of 00:00:00 [facility] TDAP 2021-01-20 Completed University of 00:00:00 [facility] TDAP 2021-01-20 Completed University of 00:00:00 [facility] TDAP 2021-01-20 Completed University of 00:00:00 [facility] TDAP 2021-01-20 Completed University of 00:00:00 [facility] TDAP 2021-01-20 Completed University of 00:00:00 [facility] TDAP 2021-01-20 Completed University of 00:00:00 [facility] TDAP 2021-01-20 Completed University of 00:00:00 [facility] TDAP 2021-01-20 Completed University of 00:00:00 [facility] TDAP 2021-01-20 Completed University of 00:00:00 [facility] TDAP 2021-01-20 Completed University of 00:00:00 [facility] TDAP 2021-01-20 Completed University of 00:00:00 [facility] TDAP 2021-01-20 Completed University of 00:00:00 [facility] TDAP 2021-01-20 Completed University of 00:00:00 [facility] TDAP 2021-01-20 Completed University of 00:00:00 [facility] TDAP 2021-01-20 Completed University of 00:00:00 [facility] TDAP 2021-01-20 Completed University of 00:00:00 [facility] TDAP 2021-01-20 Completed University of 00:00:00 [facility] TDAP 2021-01-20 Completed University of 00:00:00 [facility] TDAP 2021-01-20 Completed University of 00:00:00 [facility] SARS-COV-2 COVID-19 2020-08-06 Completed Unive rsity of PFIZER VACCINE 00:00:00 [facility] SARS-COV-2 COVID-19 2020-08-06 Completed Unive rsity of PFIZER VACCINE 00:00:00 [facility] SARS-COV-2 COVID-19 2020-08-06 Completed Unive rsity of PFIZER VACCINE 00:00:00 [facility] SARS-COV-2 COVID-19 2020-08-06 Completed Unive rsity of PFIZER VACCINE 00:00:00 [facility] SARS-COV-2 COVID-19 2020-08-06 Completed Unive rsity of PFIZER VACCINE 00:00:00 [facility] SARS-COV-2 COVID-19 2020-08-06 Completed Unive rsity of PFIZER VACCINE 00:00:00 [facility] SARS-COV-2 COVID-19 2020-08-06 Completed Unive rsity of PFIZER VACCINE 00:00:00 [facility] SARS-COV-2 COVID-19 2020-08-06 Completed Unive rsity of PFIZER VACCINE 00:00:00 [facility] SARS-COV-2 COVID-19 2020-08-06 Completed Unive rsity of PFIZER VACCINE 00:00:00 [facility] SARS-COV-2 COVID-19 2020-08-06 Completed Unive rsity of PFIZER VACCINE 00:00:00 [facility] SARS-COV-2 COVID-19 2020-08-06 Completed Unive rsity of PFIZER VACCINE 00:00:00 [facility] SARS-COV-2 COVID-19 2020-08-06 Completed Unive rsity of PFIZER VACCINE 00:00:00 [facility] SARS-COV-2 COVID-19 2020-08-06 Completed Unive rsity of PFIZER VACCINE 00:00:00 [facility] SARS-COV-2 COVID-19 2020-08-06 Completed Unive rsity of PFIZER VACCINE 00:00:00 [facility] SARS-COV-2 COVID-19 2020-08-06 Completed Unive rsity of PFIZER VACCINE 00:00:00 [facility] SARS-COV-2 COVID-19 2020-08-06 Completed Unive rsity of PFIZER VACCINE 00:00:00 [facility] SARS-COV-2 COVID-19 2020-08-06 Completed Unive rsity of PFIZER VACCINE 00:00:00 [facility] SARS-COV-2 COVID-19 2020-08-06 Completed Unive rsity of PFIZER VACCINE 00:00:00 [facility] SARS-COV-2 COVID-19 2020-08-06 Completed Unive rsity of PFIZER VACCINE 00:00:00 [facility] SARS-COV-2 COVID-19 2020-08-06 Completed Unive rsity of PFIZER VACCINE 00:00:00 [facility] SARS-COV-2 COVID-19 2020-08-06 Completed Unive rsity of PFIZER VACCINE 00:00:00 [facility] SARS-COV-2 COVID-19 2020-08-06 Completed Unive rsity of PFIZER VACCINE 00:00:00 [facility] SARS-COV-2 COVID-19 2020-08-06 Completed Unive rsity of PFIZER VACCINE 00:00:00 [facility] Influenza Virus 2020-03-20 Completed Universit y of Vaccine 00:00:00 [facility] Influenza Virus 2020-03-20 Completed Universit y of Vaccine 00:00:00 [facility] Influenza Virus 2020-03-20 Completed Universit y of Vaccine 00:00:00 [facility] Influenza Virus 2020-03-20 Completed Universit y of Vaccine 00:00:00 [facility] Influenza Virus 2020-03-20 Completed Universit y of Vaccine 00:00:00 [facility] Influenza Virus 2020-03-20 Completed Universit y of Vaccine 00:00:00 [facility] Influenza Virus 2020-03-20 Completed Universit y of Vaccine 00:00:00 [facility] Influenza Virus 2020-03-20 Completed Universit y of Vaccine 00:00:00 [facility] Influenza Virus 2020-03-20 Completed Universit y of Vaccine 00:00:00 [facility] Influenza Virus 2020-03-20 Completed Universit y of Vaccine 00:00:00 [facility] Influenza Virus 2020-03-20 Completed Universit y of Vaccine 00:00:00 [facility] Influenza Virus 2020-03-20 Completed Universit y of Vaccine 00:00:00 [facility] Influenza Virus 2020-03-20 Completed Universit y of Vaccine 00:00:00 [facility] Influenza Virus 2020-03-20 Completed Universit y of Vaccine 00:00:00 [facility] Influenza Virus 2020-03-20 Completed Universit y of Vaccine 00:00:00 [facility] Influenza Virus 2020-03-20 Completed Universit y of Vaccine 00:00:00 [facility] Influenza Virus 2020-03-20 Completed Universit y of Vaccine 00:00:00 [facility] Influenza Virus 2020-03-20 Completed Universit y of Vaccine 00:00:00 [facility] Influenza Virus 2020-03-20 Completed Universit y of Vaccine 00:00:00 [facility] Influenza Virus 2020-03-20 Completed Universit y of Vaccine 00:00:00 [facility] Influenza Virus 2020-03-20 Completed Universit y of Vaccine 00:00:00 [facility] Influenza Virus 2020-03-20 Completed Universit y of Vaccine 00:00:00 [facility] Influenza Virus 2020-03-20 Completed Universit y of Vaccine 00:00:00 [facility] Vital Signs Vital Name Observation Time Observation Value Comments Source Systolic blood 2021-05-04 16:39:00 106 mm[Hg] Univer sity of pressure [facility] Diastolic blood 2021-05-04 16:39:00 67 mm[Hg] Unive rsity of [facility] Heart rate 2021-05-04 16:39:00 66 /min Universi ty [facility] Body temperature 2021-05-04 16:39:[address] [facility] Respiratory rate 2021-05-04 16:39:00 18 /min [facility] Body height 2021-05-04 16:39:00 157.5 cm Universi ty [facility] Body weight 2021-05-04 16:39:00 62.143 kg Universi ty [facility] BMI 2021-05-04 16:39:00 25.06 kg/m2 Universi ty of [facility] Systolic blood 2021-04-13 14:10:00 114 mm[Hg] Univer sity of pressure [facility] Diastolic blood 2021-04-13 14:10:00 61 mm[Hg] Unive rsity of pressure [facility] Heart rate 2021-04-13 14:10:00 69 /min Universi ty [facility] Body temperature 2021-04-13 14:10:00 36.61 Kassandra Univ ersity of [facility] Respiratory rate 2021-04-13 14:10:00 18 /min Univ ersity of [facility] Oxygen saturation in 2021-04-13 14:10:00 99 /min University of Arterial blood by [facility] Pulse oximetry Branch Body height 2021-04-12 11:05:00 157.5 cm Universi ty [facility] Body weight 2021-04-12 11:05:00 70.761 kg Universi ty [facility] BMI 2021-04-12 11:05:00 28.53 kg/m2 Universi ty [facility] Systolic blood 2021-04-06 20:45:00 114 mm[Hg] Univer sity of pressure [facility] Diastolic blood 2021-04-06 20:45:00 71 mm[Hg] Unive rsity of pressure [facility] Heart rate 2021-04-06 20:45:00 97 /min Universi ty [facility] Body temperature 2021-04-06 20:45:00 36.67 Kassandra Univ ersity of [facility] Respiratory rate 2021-04-06 20:45:00 18 /min Univ ersity of [facility] Body height 2021-04-06 20:45:00 157.5 cm Universi ty [facility] Body weight 2021-04-06 20:45:00 70.716 kg Universi ty [facility] BMI 2021-04-06 20:45:00 28.51 kg/m2 Universi ty [facility] Systolic blood 2021-03-28 14:57:00 104 mm[Hg] Univer sity of pressure [facility] Diastolic blood 2021-03-28 14:57:00 70 mm[Hg] Unive rsity of pressure [facility] Heart rate 2021-03-28 14:57:00 82 /min Universi ty [facility] Body temperature 2021-03-28 14:57:00 36.5 Kassandra Univ ersity of [facility] Respiratory rate 2021-03-28 14:57:00 19 /min Univ ersity of [facility] Body height 2021-03-28 14:57:00 157.5 cm Universi ty [facility] Body weight 2021-03-28 14:57:00 71.413 kg [facility]i ty [facility] BMI 2021-03-28 14:57:00 28.80 kg/m2 Universi ty [facility] Oxygen saturation in 2021-03-28 14:57:00 98 /min University of Arterial blood by [facility] Pulse oximetry Branch Systolic blood 2021-03-22 13:56:00 117 mm[Hg] Univer sity of pressure [facility] Diastolic blood 2021-03-22 13:56:00 76 mm[Hg] Unive rsity of pressure [facility] Heart rate 2021-03-22 13:56:00 100 /min Universi ty [facility] Body temperature 2021-03-22 13:56:00 36.78 Kassandra Univ ersity of [facility] Respiratory rate 2021-03-22 13:56:00 19 /min Univ ersity of [facility] Body height 2021-03-22 13:56:00 157.5 cm Universi ty [facility] Body weight 2021-03-22 13:56:00 70.336 kg Universi ty [facility] BMI 2021-03-22 13:56:00 28.36 kg/m2 Universi ty [facility] Oxygen saturation in 2021-03-22 13:56:00 98 /min University of Arterial blood by [facility] Pulse oximetry Branch Systolic blood 2021-03-06 18:32:00 100 mm[Hg] Univer sity of pressure [facility] Diastolic blood 2021-03-06 18:32:00 65 mm[Hg] Unive rsity of pressure [facility] Heart rate 2021-03-06 18:32:00 83 /min Universi ty [facility] Body temperature 2021-03-06 18:32:00 36.78 Kassandra Univ ersity of [facility] Respiratory rate 2021-03-06 18:32:00 18 /min Univ ersity of [facility] Body height 2021-03-06 18:32:00 157.5 cm Universi ty [facility] Body weight 2021-03-06 18:32:00 69.31 kg Universi ty [facility] BMI 2021-03-06 18:32:00 27.95 kg/m2 Universi ty [facility] Systolic blood 2021-02-20 18:21:00 99 mm[Hg] Univer sity of pressure [place] [facility] Diastolic blood 2021-02-20 18:21:00 65 mm[Hg] Unive rsity of pressure [place] [facility] Heart rate 2021-02-20 18:21:00 86 /min Universi ty [facility] [place] [facility] Body temperature 2021-02-20 18:21:00 36.67 Kassandra Univ ersity of [place] [facility] Respiratory rate 2021-02-20 18:21:00 18 /min Univ ersity of [place] [facility] Body height 2021-02-20 18:21:00 157.5 cm Universi ty [facility] [place] [facility] Body weight 2021-02-20 18:21:00 69.264 kg Universi ty [facility] [place] [facility] BMI 2021-02-20 18:21:00 27.93 kg/m2 Universi ty [facility] Systolic blood 2021-02-06 13:34:00 104 mm[Hg] Univer sity of pressure [place] [facility] Diastolic blood 2021-02-06 13:34:00 68 mm[Hg] Unive rsity of pressure [place] [facility] Heart rate 2021-02-06 13:34:00 81 /min Universi ty [facility] [place] [facility] Body temperature 2021-02-06 13:34:00 36.89 Kassandra Univ ersity [facility] [place] [facility] Respiratory rate 2021-02-06 13:34:00 18 /min Univ ersity of [place] [facility] Body height 2021-02-06 13:34:00 157.5 cm Universi ty [facility] [place] [facility] Body weight 2021-02-06 13:34:00 69.4 kg Universi ty [facility] [place] [facility] BMI 2021-02-06 13:34:00 27.98 kg/m2 [facility]i ty [facility] [place] [facility] Systolic blood 2021-01-20 19:53:00 98 mm[Hg] Univer sity of pressure [place] [facility] Diastolic blood 2021-01-20 19:53:00 59 mm[Hg] Unive rsity of pressure [place] [facility] Heart rate 2021-01-20 19:53:00 76 /min Universi ty [facility] [place] [facility] Body temperature 2021-01-20 19:53:00 36.78 Kassandra Univ ersity [facility] [place] [facility] Respiratory rate 2021-01-20 19:53:00 18 /min Univ ersity of [facility] Body height 2021-01-20 19:53:00 157.5 cm [facility]i ty [facility] Body weight 2021-01-20 19:53:00 68.402 kg [facility]i ty [facility] BMI 2021-01-20 19:53:00 27.58 kg/m2 [facility]i ty [facility] Systolic blood 2019-09-09 18:16:00 97 mm[Hg] Univer sity of pressure [facility] Diastolic blood 2019-09-09 18:16:00 57 mm[Hg] Unive rsity of pressure [facility] Heart rate 2019-09-09 18:16:00 71 /min Universi ty [facility] Body temperature 2019-09-09 18:16:00 36.78 Kassandra Univ ersity [facility] Respiratory rate 2019-09-09 18:16:00 16 /min Univ ersity of [facility] Body height 2019-09-09 18:16:00 154.9 cm Universi ty [facility] Body weight 2019-09-09 18:16:00 58.656 kg [facility]i ty [facility] BMI 2019-09-09 18:16:00 24.43 kg/m2 [facility] ty [facility] Systolic blood 2019-09-09 18:16:00 97 mm[Hg] Univer sity of pressure [facility] Diastolic blood 2019-09-09 18:16:00 57 mm[Hg] Unive rsity of pressure [facility] Heart rate 2019-09-09 18:16:00 71 /min Universi ty [facility] Body temperature 2019-09-09 18:16:00 36.78 Kassandra Univ ersity [facility] Respiratory rate 2019-09-09 18:16:00 16 /min Univ ersity of [facility] Body height 2019-09-09 18:16:00 154.9 cm [facility]i ty [facility] Body weight 2019-09-09 18:16:00 58.656 kg [facility]i ty [facility] BMI 2019-09-09 18:16:00 24.43 kg/m2 [facility] ty [facility] Procedures Procedure Date / Time Performing Clinician Source Performed GARDASIL 9 (HPV 9V) 2021-05-04 16:36:31 Jimmy, Karan [facility] VACCINE [facility] Branch CONSENT FOR 2021-05-04 06:01:00 Doctor Unassigned, No [facility] CONTRACEPTION [facility] POCT TEST 2021-05-04 00:00:00 Fish, Karan [facility] CBC WITH DIFF 2021-04-13 09:56:00 Fish, [facility] CENTRAL NEURAXIAL BLOCK 2021-04-12 14:55:[address] [facility] CBC WITH DIFF 2021-04-12 11:27:00 Fish, [facility] HEPATITIS B SURFACE 2021-04-12 11:27:00 Fish, [facility] ANTIGEN [facility] ADC OR CHE ONLY - 2021-04-12 11:27:00 Fish, Karan [facility] RPR [facility] HIV 1/2 AG-AB WITH 2021-04-12 11:27:00 Fish, Karan [facility] REFLEX [facility] HB ABO GROUPING 2021-04-12 11:25:00 Fish, [facility] RHO (D) IMMUNE GLOBULIN 2021-04-12 11:25:00 Jimmy [facility] ADMISSION 2021-04-12 06:01:00 Doctor Unassigned, No [facility] ASSIGNMENT OF BENEFITS 2021-04-10 15:38:22 Doctor Unassigned, [facility] POCT URINALYSIS W/O 2021-04-06 20:49:00 Jimmy [facility] SPECIFIC GRAVITY [facility] POCT URINALYSIS W/O 2021-03-28 15:03:00 Jimmy, [facility] SPECIFIC GRAVITY Medical [place] POCT URINALYSIS W/O 2021-03-22 13:58:00 Jimmy [facility] DISCLOSURE AND CONSENT, 2021-03-22 05:01:00 Doctor Unassigned, N o [facility] MEDICAL AND SURGICAL [facility] nch PROCEDURES POCT URINALYSIS W/O 2021-03-06 18:32:[address] [facility] POCT URINALYSIS W/O 2021-02-20 18:45:00 Karan Marquez [facility] POCT URINALYSIS W/O 2021-02-06 00:00:00 Karan Marquez [facility] TDAP VACCINE, >11 YRS, 2021-01-20 20:00:52 JimmyKaran [facility] POCT URINALYSIS W/O 2021-01-20 00:00:00 Karan Marquez [facility] ASSIGNMENT OF BENEFITS 2020-11-14 18:52:33 Doctor Unassigned, No [facility] SCANNED LAB RESULTS 2020-10-04 05:01:00 [facility], [facility] 2019-09-09 18:25:00 Daniela Rayo [facility] POCT TEST 2019-09-09 18:24:00 Daniel[facility] ASSIGNMENT OF BENEFITS 2019-09-09 18:05:06 Doctor Unassigned, No [facility] Encounters Start End Encounter Admission Attending Care Care Encounter Source Date/Time Date/Time Type Type Clinicians Facility Department ID 2021-06-29 2021-06-29 Outpatient R KARAN MARQUEZ [facility] [id number] Univers 16:00:00 16:00:00 [facility] [place] 2021-06-13 2021-06-13 Outpatient R KARAN MARQUEZ [facility] [id number] Univers 11:15:00 11:15:00 [facility] [place] 2021-05-25 2021-05-25 Outpatient R KARAN MARQUEZ [facility] [id number] Univers 13:30:00 13:30:00 [facility] [place] 2021-05-04 2021-05-04 Outpatient R KARAN MARQUEZ [facility] [id number] Univers 13:30[facility] 2021-05-04 2021-05-04 Outpatient R KARAN MARQUEZ [facility] [id number] Univers 10:30:00 11:45:59 ity of [facility] 2021-05-04 2021-05-04 Routine Karan Marquez [facility] 1.2.840.114 [id number] Univers 10:30:00 11:45:59 VÍCTOR [id number] i ty of Visit WOMEN'S [id number] [facility] [id number] [facility] 134 Branch 2021-05-04 2021-05-04 Orders Doctor ERIN 1.2.840.114 [id number] Univers 00:00:00 00:00:00 Only Unassigned, WILLARD [id number] ity of [place] [facility] [id number] Arturo as [id number] [address] 2021-04-12 2021-04-13 Inpatient P KARAN MARQUEZ [facility] JAYLIN [id number] Univers 04:42:00 13:25:00 ity of [facility] 2021-04-12 2021-04-13 Hospital Karan Marquez [facility] 1.2.840.114 [id number] Univers 04:42:00 13:25:00 Encounter BRENDA [id number] ity of [place] [id number] [facility] [id number] [place] [id number] [place] 2021-04-12 2021-04-12 Anesthesia Jd Dodd [facility] 1.2.840.11 [id number] Univers 08:00:00 11:13:00 Event All Burr [place] 350.1.13. 10 ity [facility] [id number] [facility] [id number] [place] [address] [place] 2021-04-12 2021-04-12 Orders Doctor ERIN 1.2.840.114 [id number] Univers 00:00:00 00:00:00 Only Unassigned, WILLARD [id number] ity of [place] [facility] [id number] Arturo as [id number] [address] 2021-04-10 2021-04-10 Laboratory Only, Adc Test [facility] 1.2.840. 114 [id number] Univers 09:42:36 09:57:36 Only FishKaran 350.1.13.10 ity of [place] [id number] [facility] [id number] [place] [address] Branch 2021-04-10 2021-04-10 Outpatient R KARAN MARQUEZ [facility] [id number] Univers 09:30:00 09:30:00 ity of [facility] 2021-04-10 2021-04-10 Orders Doctor ERIN 1.2.840.114 [id number] Univers 00:00:00 00:00:00 Only Unassigned, WILLARD [id number] ity of [place] [facility] [id number] Arturo as [id number] [address] 2021-04-06 2021-04-06 Routine Karan Marquez [facility] 1.2.840.114 [id number] [facility] 14:33:12 15:19:06 VÍCTOR 350.1.13.10 i ty of Visit WOMEN'S [id number] [facility] [id number] [address] 2021-04-06 2021-04-06 Outpatient R KARAN MARQUEZ [facility] [id number] [facility] 14:30:00 15:19:06 ity of [facility] 2021-03-28 2021-03-28 Outpatient R KARAN MARQUEZ [facility] [id number] [facility] 09:00:00 09:46:56 ity of [facility] 2021-03-28 2021-03-28 Routine Karan Marquez [facility] [place] 1.2.840.114 [id number] Univers 08:50:08 09:46:56 VÍCTOR 350.1.13.10 i ty of Visit WOMEN'S [id number] [facility] [id number] [address] 2021-03-24 2021-03-24 [facility] [employer] [facility], Ang - [facility] 1.2.840.1 [id number] [facility] 12:56:57 13:11:57 Visit FishKaran 350.1.13.10 ity of [place] [id number] Artruo as MILY?BLEA [id number] Wi diclesley LOVE [address] [place] MEDICAL OFFICE BUILDING 2021-03-24 2021-03-24 Outpatient R KARAN MARQUEZ [facility] [id number] Univers 13:00:00 13:00:00 ity of [facility] 2021-03-24 2021-03-24 Case Karan Marquez [facility] 1.2.840.114 [id number] Univers 00:00:00 00:00:00 Management BRENDA [id number] ity [facility] [id number] [place] [id number] Wi diclesley [facility] [address] [facility] 2021-03-22 2021-03-22 Outpatient R KARAN MARQUEZ [facility] [id number] Univers 08:45:00 09:22:13 ity of [facility] 2021-03-22 2021-03-22 Routine Karan Marquez [facility] 1.2.840.114 [id number] Univers 08:38:45 09:22:13 VÍCTOR 350.1.13.10 i ty of [id number] [facility] [id number] [address] 2021-03-22 2021-03-22 Orders Doctor ERIN 1.2.840.114 [id number] Univers 00:00:00 00:00:00 Only Unassigned, WILLARD 350.1.13.10 ity of [place] [facility] [id number] Arturo as [id number] [address] 2021-03-20 2021-03-20 Outpatient R KARAN MARQUEZ [facility] [id number] Univers 13:45:00 13:45:00 ity [facility] 2021-03-06 2021-03-06 Routine Karan Marquez [facility] [place] 1.2.840.114 [id number] Univers 13:11:33 14:01:49 Víctor 350.1.13.10 i ty of Visit [facility] [id number] [facility] [id number] [address] 2021-03-06 2021-03-06 Outpatient R KARAN MARQUEZ [facility] [id number] Univers 13:15:00 13:15:00 ity [facility] 2021-02-20 2021-02-20 Routine FishKaran [facility] [place] 1.2.840.114 [id number] Univers 12:55:30 13:38:10 Víctor 350.1.13.10 i ty of Visit [place] [phone] [address] 2021-02-20 2021-02-20 Outpatient R KARAN MARQUEZ [facility] [id number] Univers 13:00:00 13:00:00 ity [facility] 2021-02-08 2021-02-08 Outpatient R KARAN MARQUEZ [facility] [id number] Univers 12:15:00 12:15:00 ity [facility] 2021-02-06 2021-02-06 Outpatient R KARAN MARQUEZ [facility] [id number] Univers 13:00:00 13:00:00 ity [facility] 2021-02-06 2021-02-06 Routine Karan Marquez [facility] [place] 1.2.840.114 [id number] Univers 08:18:18 08:54:30 Víctor 350.1.13.10 i ty of Visit [place] [phone] [address] 2021-01-20 2021-01-20 Routine Karan Marquez [facility] 1.2.840.114 [id number] Univers 14:29:30 15:16:58 [place] 350.1.13.10 ity of [place] [phone] Wi dical [address] 2021-01-20 2021-01-20 Outpatient R KARAN MARQUEZ [facility] [id number] Univers 14:30:00 14:30:00 ity [facility] 2021-01-10 2021-01-10 Outpatient R KARAN MARQUEZ [facility] [id number] Univers 16:00:00 16:00:00 ity [facility] 2021-01-10 2021-01-10 Outpatient R KARAN MARQUEZ [facility] [id number] Univers 16:00:00 16:00:00 ity of [facility] 2020-12-13 2020-12-13 Outpatient R KARAN MARQUEZ [facility] [id number] Univers 13:00:00 13:00:00 ity of [facility] 2020-12-02 2020-12-02 Warehouse Shipper Kitty, Richard [facility] 1.2 .840.114 [id number] Univers 13:56:41 14:56:41 Visit Simone Tami Yepez 350.1.13.10 [place] [phone] Wi dical nal 134 [facility] 2020-12-02 2020-12-02 Outpatient R [facility] [id number] Univers 14:00:00 14:00:00 ity of [facility] 2020-11-15 2020-11-15 Outpatient R KARAN MARQUEZ [facility] [id number] Univers 13:30:00 13:30:00 ity of [facility] 2020-11-14 2020-11-14 Warehouse Shipper Bryce, Richard [facility] 1.2.8 40.114 [id number] Univers 13:53:39 14:08:39 Visit Karan Marquez 350.1.13.10 [place] [id number] Wi dical nal 353 [facility] 2020-11-14 2020-11-14 Outpatient R KARAN MARQUEZ [facility] [id number] Univers 14:00:00 14:00:00 ity of [facility] 2020-11-14 2020-11-14 Orders Doctor ERIN 1.2.840.114 [id number] Univers 00:00:00 00:00:00 Only Unassigned, [place] 350.1.13.10 ity of [place] [facility] 4.2.7.2.686 Arturo as [phone] [address] 2020-10-25 2020-10-25 Outpatient R KARAN MARQUEZ [facility] [id number] Univers 13:15:00 13:15:00 ity [facility] 2020-10-04 2020-10-04 Orders Doctor ERIN 1.2.840.114 [id number] Univers 00:00:00 00:00:00 Only Unassigned, [place] 350.1.13.10 [facility] 4.2.7.2.686 Art[place] as [phone] [address] 2020-10-03 2020-10-03 Outpatient R KARAN MARQUEZ [facility] [id number] Univers 14:45:00 14:45:00 ity [facility] 2020-09-27 2020-09-27 Outpatient R KARAN MARQUEZ [facility] [id number] Univers 11:15:00 11:15:00 ity [facility] 2020-08-30 2020-08-30 Outpatient R KARAN MARQUEZ [facility] [id number] Univers 13:30:00 13:30:00 ity [facility] 2020-08-27 2020-08-27 Outpatient [facility] [id number] Univers 14:00:00 14:00:00 ity [facility] 2020-08-06 2020-08-06 Outpatient [facility] [id number] Univers 13:50:00 13:50:00 ity [facility] 2019-11-05 2019-11-05 [id number] Univers 15:30:00 15:30:00 DANIELA ity o f [facility] 2019-10-15 2019-10-15 [facility] 1.2.840.114 [id number] Univers 00:00:00 00:00:00 Daniela R [employer] 350.1.13.10 ity of [facility] 4.2.7.2.686 Arturo as MATERNAL [id number] Med ical & CHILD [address] [place] [address] 2019-10-15 2019-10-15 [facility] 1.2.840.114 [id number] 00:00:00 00:00:00 Marthanda R [employer] 350.1.13.10 REGIONAL 4.2.7.2.686 MATERNAL [id number] & CHILD 107 [facility] 2019-10-14 2019-10-14 Warehouse Shipper [facility]tras[facility] 1.2 .840.114 [id number] Univers 14:09:34 14:39:34 Visit Colton Roberts R [employer] 350.1.13.10 ity of REGIONAL 4.2.7.2.686 Arturo as MATERNAL [phone] Med ical & CHILD [address] [facility] 2019-10-14 2019-10-14 Warehouse Shipper Ultrasound, [facility] 1.2.840.114 [id number] 14:09:34 14:39:34 [facility] [employer] [facility] [facility] 350.1.13.10 REGIONAL 4.2.7.2.686 MATERNAL [id number] & CHILD 369 [facility] 2019-10-14 2019-10-14 Outpatient P [facility] [id number] Univers 14:00:00 14:00:00 ity of [facility] 2019-10-08 2019-10-08 Outpatient R PERRI [facility] [id number] Univers 14:00:00 14:00:00 ROSHUNDA ity o f [facility] 2019-10-08 2019-10-08 Telemedic Perri [facility] 1.2.840.114 [id number] Univers 09:44:58 10:53:08 ne Visit Neemasahra R [employer] 350.1.13.10 ity of REGIONAL 4.2.7.2.686 Arturo as MATERNAL [id number] [facility] & CHILD [address] [place] [address] 2019-10-08 2019-10-08 Telemedici Perri [facility] 1.2.840.114 [id number] 09:44:58 10:53:08 ne Visit Marthanda R [employer] 350.1.13.10 REGIONAL 4.2.7.2.686 MATERNAL [id number] & CHILD [address] [place] [address] 2019-09-09 2019-09-09 Initial Perri [facility] 1.2.840.114 [id number] Univers 13:11:00 14:10:52 Roshunda R [employer] 350.1.13.10 ity of Visit REGIONAL 4.2.7.2.686 Arturo as MATERNAL [phone] Med ical & CHILD [address] [place] [address] 2019-09-09 2019-09-09 Initial Perri [facility] 1.2.840.114 [id number] 13:11:00 14:10:52 Daniela Janay [employer] 350.1.13.10 Visit REGIONAL 4.2.7.2.686 MATERNAL [id number] & CHILD [address] [place] [address] 2019-09-09 2019-09-09 Outpatient R PERRI [facility] [id number] Univers 13:15:00 13:15:00 ROSEDNANDA ity o f [facility] 2019-09-09 2019-09-09 Orders Doctor ERIN 1.2.840.114 [id number] Univers 00:00:00 00:00:00 Only Unassigned, [place] 350.1.13.10 ity of [place] [facility] 4.2.7.2.686 Arturo as [phone] [address] 2019-09-03 2019-09-03 Telephone Perri [facility] 1.2.126.358 [id number] Univers 00:00:00 00:00:00 Marthawing Gustafson [employer] 350.1.13.10 ity of REGIONAL 4.2.7.2.686 Arturo as MATERNAL [id number] Med ical & CHILD [address] [place] [address] Results Test Description Test Time Test Comments Results Result Comments Source POCT TEST 2021-05-04 17:33:00 Test Item Value Reference Range Interpretation Comme nts POCT PREG (test code = 1605) Negative On board controls acceptable with C Line (test code = 3574) Yes POCT PREG LOT # (test code = 3575) POCT PREG TEST DATE (test code = 3576) [facility] [id number] 11:02:22 Test Item Value Reference Range Interpretation Comments WBC (test code = See_Comment [Automated 0790-2) message] The sy stem which generated this result transmitted reference range : 4.30 - 11.10 10*3/?L. The reference range was not used to interpret this result as normal/abnormal . RBC (test code = See_Comment L [Automated 989-8) message] The sy stem which generated this result transmitted reference range : 3.93 - 5.25 10*6/?L. The reference range was not used to interpret this result as normal/abnormal . HGB (test code = 8.2 g/dL 11.6-15.0 L 718-7) HCT (test code = 26.7 % 35.7-45.2 L 4544-3) MCV (test code = 84.8 fL 80.6-95.5 787-2) MCH (test code = 26.0 pg 25.9-32.8 785-6) MCHC (test code = 30.7 g/dL 31.6-35.1 L 786-4) RDW-SD (test code = 43.5 fL 39.0-49.9 82138-3) RDW-CV (test code = 14.2 % 12.0-15.5 788-0) PLT (test code = See_Comment [Automated 777-3) message] The sy stem which generated this result transmitted reference range : 166 - 358 10*3/ ?L. The reference r yuniel was not used to interpret this result as normal/abnormal . MPV (test code = 12.4 fL 9.5-12.9 61977-3) NRBC/100 WBC (test See_Comment [Automat ed code = 5630922189) message] The system which generated this result transmitted reference range : 0.0 - 10.0 /100 WBCs. The refer ence range was not u sed to interpret th is result as normal/abnormal . NRBC x10^3 (test code <0.01 See_Comment [Auto mated = 2084733507) message] The s ystem which generated this result transmitted reference range : 10*3/?L. The reference range was not used to interpret this result as normal/abnormal . GRAN MAT (NEUT) % 54.9 % (test code = 770-8) IMM GRAN % (test code 1.00 % = 1386447366) LYMPH % (test code = 35.4 % 736-9) MONO % (test code = 7.0 % 5905-5) EOS % (test code = 1.4 % 713-8) BASO % (test code = 0.3 % 706-2) GRAN MAT x10^3(ANC) 5.51 10*3/uL 1.88-7.09 (test code = 8282557705) IMM GRAN x10^3 (test 0.10 10*3/uL 0.00-0.06 H code = 9281034086) LYMPH x10^3 (test code 3.55 10*3/uL 1.32-3.29 H = 731-0) MONO x10^3 (test code 0.70 10*3/uL 0.33-0.92 = 742-7) EOS x10^3 (test code = 0.14 10*3/uL 0.03-0.39 711-2) BASO x10^3 (test code 0.03 10*3/uL 0.01-0.07 = 704-7) Lab Interpretation Abnormal (test code = 78077-0) [facility] OR CHE ONLY - [id number] 07:25:54 Test Item Value Reference Range Interpretation Comments RPR (Qualitative) (test code = Nonreactive Nonreactive 89134-8) Lab Interpretation (test code = Normal 45885-4) [facility] IMMUNE [id number] 19:37:41 Test Item Value Reference Range Interpretation Comments RHIG CANDIDATE? No- see comment Patient i s not a (test code = candidate for R [facility]- 5055) Patient is Rh Positive.Perfor med at [facility] Laboratory Services - [facility] Blood [address] [place], [place] [address]Toll Free: [phone] A No. [id number] [facility]atitis B Surface [id number] 16:34:12 Test Item Value Reference Range Interpretation Comments HBsAg Semi-Quantitative (test code = Negative Negative 5195-3) [facility] AG-AB WITH [id number] 14:27:20 Test Item Value Reference Range Interpretation Comments HIV Negative Negative Semi-quantitative (test code = 94401-5) GENO (test code = Non-reactive for HIV-1 GENO) antigen and HIV-1/HIV-2 antibodies. ?No laboratory evidence of HIV infection. ?Repeat in 2-4 weeks if acute HIV infection is suspected. [facility] and Screen - ONCE [id number] 12:28:06 Test Item Value Reference Range Interpretation Comments ABO & RH (test code O Positive Performe d at [facility] = 20) Laboratory [facility] [place], [place] [address]Toll Free: [phone] A No. [id number] IAT (test code = Negative Performed a t [facility] 1185) Laboratory [facility] [place], [place] [address]Toll Free: [phone] A No. [id number] [facility] with [id number] 12:00:53 Test Item Value Reference Range Interpretation Comments WBC (test code = See_Comment [Automated 9190-2) message] The sy stem which generated this result transmitted reference range : 4.30 - 11.10 10*3/?L. The reference range was not used to interpret this result as normal/abnormal . RBC (test code = See_Comment L [Automated 139-8) message] The sy stem which generated this result transmitted reference range : 3.93 - 5.25 10*6/?L. The reference range was not used to interpret this result as normal/abnormal . HGB (test code = 10.3 g/dL 11.6-15.0 L 718-7) HCT (test code = 31.8 % 35.7-45.2 L 4544-3) MCV (test code = 82.4 fL 80.6-95.5 787-2) MCH (test code = 26.7 pg 25.9-32.8 785-6) MCHC (test code = 32.4 g/dL 31.6-35.1 786-4) RDW-SD (test code = 42.0 fL 39.0-49.9 53126-8) RDW-CV (test code = 14.3 % 12.0-15.5 788-0) PLT (test code = See_Comment [Automated 777-3) message] The sy stem which generated this result transmitted reference range : 166 - 358 10*3/ ?L. The reference r yuniel was not used to interpret this result as normal/abnormal . MPV (test code = 12.2 fL 9.5-12.9 80702-5) NRBC/100 WBC (test See_Comment [Automat ed code = 6381662907) message] The system which generated this result transmitted reference range : 0.0 - 10.0 /100 WBCs. The refer ence range was not u sed to interpret th is result as normal/abnormal . NRBC x10^3 (test code <0.01 See_Comment [Auto mated = 5981691168) message] The s ystem which generated this result transmitted reference range : 10*3/?L. The reference range was not used to interpret this result as normal/abnormal . GRAN MAT (NEUT) % 56.2 % (test code = 770-8) IMM GRAN % (test code 0.90 % = 0426078340) LYMPH % (test code = 34.8 % 736-9) MONO % (test code = 6.5 % 5905-5) EOS % (test code = 1.1 % 713-8) BASO % (test code = 0.5 % 706-2) GRAN MAT x10^3(ANC) 4.98 10*3/uL 1.88-7.09 (test code = 7074344243) IMM GRAN x10^3 (test 0.08 10*3/uL 0.00-0.06 H code = 6377612882) LYMPH x10^3 (test code 3.08 10*3/uL 1.32-3.29 = 731-0) MONO x10^3 (test code 0.58 10*3/uL 0.33-0.92 = 742-7) EOS x10^3 (test code = 0.10 10*3/uL 0.03-0.39 711-2) BASO x10^3 (test code 0.04 10*3/uL 0.01-0.07 = 704-7) Lab Interpretation Abnormal (test code = 82388-6) General acute hospital URINALYSIS W/O SPECIFIC [id number] 20:49:00 Test Item Value Reference Range Interpretation Comments POCT PH U (test code = 3254) N/A 5-8 POCT U LEUK EST (test code = N/A Negative - Negative 3263) POCT U NIT (test code = 3262) N/A Negative - Negative POCT U PROT (test code = 3259) Negative Negative - Negative POCT U GLU (test code = 3256) Negative Negative - Negative POCT U KETONE (test code = 3258) N/A Negative - Negative POCT U BLD (test code = 3257) N/A Negative - Negative Lab Interpretation (test code = Normal 71080-3) General acute hospital URINALYSIS W/O SPECIFIC [id number] 15:03:00 Test Item Value Reference Range Interpretation Comments POCT PH U (test code = 3254) n/a 5-8 POCT U LEUK EST (test code = n/a Negative - Negative 3263) POCT U NIT (test code = 3262) n/a Negative - Negative POCT U PROT (test code = 3259) negative Negative - Negative POCT U GLU (test code = 3256) negative Negative - Negative POCT U KETONE (test code = 3258) n/a Negative - Negative POCT U BLD (test code = 3257) n/a Negative - Negative Lab Interpretation (test code = Normal 78431-5) General acute hospital URINALYSIS W/O SPECIFIC [id number] 13:58:00 Test Item Value Reference Range Interpretation Comments POCT PH U (test code = 3254) n/a 5-8 POCT U LEUK EST (test code = n/a Negative - Negative 3263) POCT U NIT (test code = 3262) n/a Negative - Negative POCT U PROT (test code = 3259) negative Negative - Negative POCT U GLU (test code = 3256) negative Negative - Negative POCT U KETONE (test code = 3258) n/a Negative - Negative POCT U BLD (test code = 3257) n/a Negative - Negative Lab Interpretation (test code = Normal 12912-2) General acute hospital URINALYSIS W/O SPECIFIC [id number] 18:33:00 Test Item Value Reference Range Interpretation Comments POCT PH U (test code = 3254) N/A 5-8 POCT U LEUK EST (test code = N/A Negative - Negative 3263) POCT U NIT (test code = 3262) N/A Negative - Negative POCT U PROT (test code = 3259) Negative Negative - Negative POCT U GLU (test code = 3256) Negative Negative - Negative POCT U KETONE (test code = 3258) N/A Negative - Negative POCT U BLD (test code = 3257) N/A Negative - Negative Lab Interpretation (test code = Normal 48311-6) General acute hospital URINALYSIS W/O SPECIFIC [id number] 18:45:00 Test Item Value Reference Range Interpretation Comments POCT PH U (test code = 3254) N/A 5-8 POCT U LEUK EST (test code = N/A Negative - Negative 3263) POCT U NIT (test code = 3262) N/A Negative - Negative POCT U PROT (test code = 3259) Trace Negative - Negative POCT U GLU (test code = 3256) Negative Negative - Negative POCT U KETONE (test code = 3258) N/A Negative - Negative POCT U BLD (test code = 3257) N/A Negative - Negative Lab Interpretation (test code = Normal 08819-6) General acute hospital URINALYSIS W/O SPECIFIC [id number] 13:32:00 Test Item Value Reference Range Interpretation Comments POCT PH U (test code = 3254) n/a 5-8 POCT U LEUK EST (test code = n/a Negative - Negative 3263) POCT U NIT (test code = 3262) n/a Negative - Negative POCT U PROT (test code = 3259) negative Negative - Negative POCT U GLU (test code = 3256) negative Negative - Negative POCT U KETONE (test code = 3258) n/a Negative - Negative POCT U BLD (test code = 3257) n/a Negative - Negative General acute hospital URINALYSIS W/O SPECIFIC [id number] 13:32:00 Test Item Value Reference Range Interpretation Comments POCT PH U (test code = 3254) n/a 5-8 POCT U LEUK EST (test code = n/a Negative - Negative 3263) POCT U NIT (test code = 3262) n/a Negative - Negative POCT U PROT (test code = 3259) negative Negative - Negative POCT U GLU (test code = 3256) negative Negative - Negative POCT U KETONE (test code = 3258) n/a Negative - Negative POCT U BLD (test code = 3257) n/a Negative - Negative General acute hospital URINALYSIS W/O SPECIFIC [id number] 19:55:00 Test Item Value Reference Range Interpretation Comments POCT PH U (test code = 3254) n/a 5-8 POCT U LEUK EST (test code = 3263) n/a Negative - Negative POCT U NIT (test code = 3262) n/a Negative - Negative POCT U PROT (test code = 3259) neg Negative - Negative POCT U GLU (test code = 3256) neg Negative - Negative POCT U KETONE (test code = 3258) n/a Negative - Negative POCT U BLD (test code = 3257) n/a Negative - Negative Lab Interpretation (test code = Normal 79244-9) General acute hospital URINALYSIS W/O SPECIFIC [id number] 19:55:00 Test Item Value Reference Range Interpretation Comments POCT PH U (test code = 3254) n/a 5-8 POCT U LEUK EST (test code = 3263) n/a Negative - Negative POCT U NIT (test code = 3262) n/a Negative - Negative POCT U PROT (test code = 3259) neg Negative - Negative POCT U GLU (test code = 3256) neg Negative - Negative POCT U KETONE (test code = 3258) n/a Negative - Negative POCT U BLD (test code = 3257) n/a Negative - Negative Lab Interpretation (test code = Normal 47131-4) General acute hospital [id number] 18:25:00 Test Item Value Reference Range Interpretation Comments POCT PREG (test code = 1605) Positive On board controls acceptable with C Yes Line (test code = 3574) POCT PREG LOT # (test code = 3575) POCT PREG TEST DATE (test code = 3576) General acute hospital URINALYSIS W SPECIFIC [id number] 18:25:00 Test Item Value Reference Range Interpretation Comments POCT U SP GRAV (test code = . 1.005-1.025 3255) POCT PH U (test code = 3254) 6 mg/dl 5-8 POCT U LEUK EST (test code = 1+ Negative - Negative 3263) POCT U NIT (test code = 3262) negative Negative - Negative POCT U PROT (test code = 3259) 1+ Negative - Negative POCT U GLU (test code = 3256) negative Negative - Negative POCT U KETONE (test code = 3258) negative Negative - Negative POCT U UROBILI (test code = . 0.2-1 3260) POCT U BILI (test code = 3261) . Negative - Negative POCT U BLD (test code = 3257) large Negative - Negative POCT U COLOR (test code = 3266) POCT U APPEAR (test code = 3267) General acute hospital [id number] 18:25:00 Test Item Value Reference Range Interpretation Comments POCT PREG (test code = 1605) Positive On board controls acceptable with C Yes Line (test code = 3574) POCT PREG LOT # (test code = 3575) POCT PREG TEST DATE (test code = 3576) General acute hospital URINALYSIS W SPECIFIC [id number] 18:25:00 Test Item Value Reference Range Interpretation Comments POCT U SP GRAV (test code = . 1.005-1.025 3255) POCT PH U (test code = 3254) 6 mg/dl 5-8 POCT U LEUK EST (test code = 1+ Negative - Negative 3263) POCT U NIT (test code = 3262) negative Negative - Negative POCT U PROT (test code = 3259) 1+ Negative - Negative POCT U GLU (test code = 3256) negative Negative - Negative POCT U KETONE (test code = 3258) negative Negative - Negative POCT U UROBILI (test code = . 0.2-1 3260) POCT U BILI (test code = 3261) . Negative - Negative POCT U BLD (test code = 3257) large Negative - Negative POCT U COLOR (test code = 3266) POCT U APPEAR (test code = 3267) General acute hospital [id number] 18:25:00 Test Item Value Reference Range Interpretation Comments POCT PREG (test code = 1605) Positive On board controls acceptable with C Yes Line (test code = 3574) POCT PREG LOT # (test code = 3575) POCT PREG TEST DATE (test code = 3576) General acute hospital URINALYSIS W SPECIFIC [id number] 18:25:00 Test Item Value Reference Range Interpretation Comments POCT U SP GRAV (test code = . 1.005-1.025 3255) POCT PH U (test code = 3254) 6 mg/dl 5-8 POCT U LEUK EST (test code = 1+ Negative - Negative 3263) POCT U NIT (test code = 3262) negative Negative - Negative POCT U PROT (test code = 3259) 1+ Negative - Negative POCT U GLU (test code = 3256) negative Negative - Negative POCT U KETONE (test code = 3258) negative Negative - Negative POCT U UROBILI (test code = . 0.2-1 3260) POCT U BILI (test code = 3261) . Negative - Negative POCT U BLD (test code = 3257) large Negative - Negative POCT U COLOR (test code = 3266) POCT U APPEAR (test code = 3267) General acute hospital [id number] 18:25:00 Test Item Value Reference Range Interpretation Comments POCT PREG (test code = 1605) Positive On board controls acceptable with C Yes Line (test code = 3574) POCT PREG LOT # (test code = 3575) POCT PREG TEST DATE (test code = 3576) General acute hospital URINALYSIS W SPECIFIC [id number] 18:25:00 Test Item Value Reference Range Interpretation Comments POCT U SP GRAV (test code = . 1.005-1.025 3255) POCT PH U (test code = 3254) 6 mg/dl 5-8 POCT U LEUK EST (test code = 1+ Negative - Negative 3263) POCT U NIT (test code = 3262) negative Negative - Negative POCT U PROT (test code = 3259) 1+ Negative - Negative POCT U GLU (test code = 3256) negative Negative - Negative POCT U KETONE (test code = 3258) negative Negative - Negative POCT U UROBILI (test code = . 0.2-1 3260) POCT U BILI (test code = 3261) . Negative - Negative POCT U BLD (test code = 1667) large Negative - Negative POCT U COLOR (test code = 3266) POCT U APPEAR (test code = 3267) [facility]
--- NOTE | 2022-10-02 10:50 | EDPHYS ---
Physician Documentation [facility] Name: Yasmeen Walker Age: 22 yrs Sex: Female : 2000 Arrival Date: 10/02/2022 Time: 09:28 Bed 11 Private MD: ED Physician Raj Leo HPI: 10/02 09:38 This 22 yrs old Female presents to ER via Ambulatory with complaints of Fever, jmm bodyaches/chills. 09:38 Onset: The symptoms/episode began/occurred gradually. Modifying factors: there are no jmm obvious modifying factors. Associated signs and symptoms: Pertinent positives:. Is a 22-year-old female with no chronic medical conditions that presents to the emergency department with complaints of sore throat, body aches. Patient took ibuprofen prior to arrival.. 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 - Social history:: Smoking status: Patient/guardian denies using tobacco. ROS: 09:38 Constitutional: Positive for body aches. jmm 09:38 All other systems are negative. Exam: 09:38 Constitutional: This is a well developed, well nourished patient who is awake, alert, jmm and in no acute distress. Head/Face: atraumatic. Eyes: EOMI, no conjunctival erythema appreciated 09:38 Neck: Trachea midline, Supple Chest/axilla: Normal chest wall appearance and motion. Cardiovascular: Regular rate and rhythm. No edema appreciated Respiratory: Normal respirations, no respiratory distress appreciated Abdomen/GI: Non distended Back: Normal ROM Skin: General appearance color normal MS/ Extremity: Moves all extremities, no obvious deformities appreciated, no edema noted to the lower extremities Neuro: Awake and alert Psych: Behavior is normal, Mood is normal, Patient is cooperative and pleasant 09:38 ENT: Posterior pharynx: erythema, that is moderate. Vital Signs: 09:42 BP 117 / 77; Pulse 102; Resp 16; Temp 98.6; Pulse Ox 100% on R/A; Weight 58.97 kg; iw Height 5 ft. 1 in. ; 09:42 Body Mass Index 24.56 (58.97 kg, 154.94 cm) MDM: 09:38 Patient medically screened. [facility] 12:52 Differential diagnosis: viral Infection, bacterial infection, URI. Data reviewed: vital [facility] signs, nurses notes. I considered the following discharge prescriptions or medication management in the emergency department Medications were administered in the Emergency Department. See MAR. Counseling: I had a detailed discussion with the patient and/or guardian regarding: the historical points, exam findings, and any diagnostic results supporting the discharge/admit diagnosis, lab results, the need for outpatient follow up, to return to the emergency department if symptoms worsen or persist or if there are any questions or concerns that arise at home. 10/02 09:41 Order name: COVID-19 SARS RT PCR; Complete Time: 10:34 [facility] 10/02 09:41 Order name: Influenza Screen (a \T\ B); Complete Time: 10:36 [facility] 10/02 09:41 Order name: Strep; Complete Time: 10:07 [facility] Administered Medications: No medications were administered Disposition: 13:34 Co-signature as Attending Physician, Raj Leo MD I reviewed the patient's care rn provided by the Advanced Practice Provider and agree with the diagnosis and treatment plan. Disposition Summary: 10/02/22 10:50 Discharge Ordered Location: Home [facility] Condition: Stable [facility] Diagnosis - Streptococcal pharyngitis [facility] Followup: [facility] - With: Private Physician - When: 2 - 3 days - Reason: Recheck today's complaints, Continuance of care, Re-evaluation by your physician Discharge Instructions: - Discharge Summary Sheet [facility] - Strep Throat, Adult [facility] Forms: - Medication Reconciliation Form [facility] - Thank You Letter [facility] - Antibiotic Education [facility] - Prescription Opioid Use [facility] - Work release form kj1 Prescriptions: - Amoxicillin 875 mg Oral Tablet - take 1 tablet by ORAL route every 12 hours for 10 days; 20 tablet; Refills: 0, [facility] Product Selection Permitted Signatures: Dispatcher [employer] Benjy Ríos PA PA jmm Williams, Irene, RN RN Raj Godinez MD MD rn
--- NOTE | 2022-10-02 10:50 | ER ---
Nurse's Notes [facility] Name: Yasmeen Walker Age: 22 yrs Sex: Female : 2000 Arrival Date: 10/02/2022 Time: 09:28 Bed 11 Private MD: Diagnosis: Streptococcal pharyngitis Presentation: 10/02 09:42 Chief complaint: Patient states: fever, body aches, chills, sore throat. Coronavirus iw screen: Client presents with at least one sign or symptom that may indicate coronavirus-19. Ebola Screen: Patient negative for fever greater than or equal to 101.5 degrees Fahrenheit, and additional compatible Ebola Virus Disease symptoms Patient denies exposure to infectious person. Patient denies travel to an Ebola-affected area in the 21 days before illness onset. No symptoms or risks identified at this time. Initial Sepsis Screen: Does the patient meet any 2 criteria? No. Patient's initial sepsis screen is negative. Does the patient have a suspected source of infection? No. Patient's initial sepsis screen is negative. 09:42 Method Of Arrival: Ambulatory iw 09:43 Risk Assessment: Do you want to hurt yourself or someone else? Patient reports no iw desire to harm self or others. Onset of symptoms was October 02, 2022. 09:43 Acuity: CARTER 4 iw Triage Assessment: 11:06 General: Behavior is calm, cooperative. 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 - Social history:: Smoking status: Patient/guardian denies using tobacco. Screenin:11 [facility] ED Fall Risk Assessment (Adult) History of falling in the last 3 months, iw including since admission. Abuse screen: Denies threats or abuse. Denies injuries from another. Nutritional screening: No deficits noted. Tuberculosis screening: No symptoms or risk factors identified. Assessment: 10:11 General: Appears. General: Reports feeling ill for fatigue for. Pain: Complains of pain iw in throat, body aches. Neuro: Level of Consciousness is awake, alert, obeys commands, Oriented to person, place, time, situation. Cardiovascular: Patient's skin is warm and dry. Respiratory: Respiratory effort is even, unlabored, Respiratory pattern is regular. Derm: Skin is intact, is healthy with good turgor. Musculoskeletal: Range of motion: intact in all extremities. Vital Signs: 09:42 BP 117 / 77; Pulse 102; Resp 16; Temp 98.6; Pulse Ox 100% on R/A; Weight 58.97 kg; iw Height 5 ft. 1 in. ; 09:42 Body Mass Index 24.56 (58.97 kg, 154.94 cm) iw ED Course: 09:29 Patient arrived in ED. am2 09:32 Benjy Sebastian PA is PHCP. [facility] 09:32 Raj Leo MD is Attending Physician. [facility] 09:42 Graec Clarke, RN is Primary Nurse. iw 09:43 Triage completed. iw 09:43 Arm band placed on. iw 09:48 Strep Sent. iw 09:48 Influenza Screen (a \T\ B) Sent. iw 09:48 COVID-19 SARS RT PCR Sent. iw 10:00 Strep Sent. kj1 10:00 Influenza Screen (a \T\ B) Sent. kj1 10:00 COVID-19 SARS RT PCR Sent. kj1 10:15 Patient has correct armband on for positive identification. iw 11:06 No provider procedures requiring assistance completed. Patient did not have IV access iw during this emergency room visit. Administered Medications: No medications were administered Medication: 10:11 VIS not applicable for this client. iw Outcome: 10:50 Discharge ordered by . [facility] 11:06 Discharged to home ambulatory. iw 11:06 Condition: good 11:06 Discharge instructions given to patient, Instructed on discharge instructions, follow up and referral plans. Demonstrated understanding of instructions, follow-up care. 11:07 Patient left the ED. iw Signatures: Benjy Sebastian PA PA jmm Williams, Irene, RN RN iw Dania Sommers am2 Melva Renee kj1
[2022-10-02 11:12] VITALS: BP 117/77; TEMP 98.6; O2SAT 100
== END 2022-10-02 11:07 | disposition home or self-care (01) ==
LOC: ER 09:28
DX: J02.0 Streptococcal pharyngitis (principal); Z20.822 Contact with and (suspected) exposure to COVID-19
CPT/HCPCS: 87081; 87804 ×2; 99283; U0003